=== PATIENT | female | born 1995 ===

== ENCOUNTER 2017-10-19 12:23 | Emergency (ER) | payer OTHER ==
[~2017-10-19] VITALS: Ht 154.9 cm; Wt 69.9 kg
[2017-10-19] MEDS ORDERED: SYNTHROID50 MCG (12:55)
== END 2017-10-19 18:51 | disposition home or self-care (01) ==
LOC: ER 12:23 → EDBD 12:43 → ER 12:43
DX: O20.0 Threatened abortion (principal); Z34.01 Encounter for supervision of normal first pregnancy, first trimester

== ENCOUNTER 2017-10-23 01:20 | Emergency (ER) | payer OTHER ==
[~2017-10-23] VITALS: Ht 157.5 cm; Wt 69.9 kg
[~2017-10-23 01:20] MED LIST: SYNTHROID50 MCG
[2017-10-23] MEDS ORDERED: OBSTETRIX EC C1 EACH (01:58)
== END 2017-10-23 12:45 | disposition home or self-care (01) ==
LOC: ER 01:20
DX: O20.0 Threatened abortion (principal); Z34.01 Encounter for supervision of normal first pregnancy, first trimester

== ENCOUNTER 2017-11-27 08:26 | Emergency (ER) | payer OTHER ==
[~2017-11-27] VITALS: Ht 154.9 cm; Wt 68.9 kg
[~2017-11-27 08:26] MED LIST changes: +OBSTETRIX EC C1 EACH
== END 2017-11-27 16:22 | disposition home or self-care (01) ==
LOC: ER 08:26
DX: O21.0 Mild hyperemesis gravidarum (principal); Z34.01 Encounter for supervision of normal first pregnancy, first trimester

== ENCOUNTER 2017-12-04 13:43 | Emergency (ER) | payer OTHER ==
[~2017-12-04] VITALS: Ht 154.9 cm; Wt 65.8 kg
== END 2017-12-04 19:41 | disposition home or self-care (01) ==
LOC: ER 13:43
DX: O21.0 Mild hyperemesis gravidarum (principal); O26.892 Other specified pregnancy related conditions, second trimester; K29.70 Gastritis, unspecified, without bleeding; Z34.82 Encounter for supervision of other normal pregnancy, second trimester

== ENCOUNTER 2018-04-15 10:05 | Outpatient (CLI) | payer OTHER | END 2018-04-15 10:42 | disposition home or self-care (01) | LOC: NST 10:05 | DX: Z34.03 Encounter for supervision of normal first pregnancy, third trimester (principal) ==

== ENCOUNTER 2018-04-23 12:08 | Inpatient (IN) | payer OTHER ==
[~2018-04-23] VITALS: Ht 154.9 cm; Wt 81.2 kg
[2018-04-23] MEDS ORDERED: PRENATAL TABLE1 EAC1 PO (15:39)
== END 2018-04-26 11:48 | disposition home or self-care (01) | DRG 833 ==
LOC: LDR 12:08 → OB/GYN 04-24 10:15
PROVIDERS: ADMIT Obstetrics & Gynecology
PROC: BY4FZZZ Ultrasonography of Third Trimester, Single Fetus (ICD-10-PCS; principal; 2018-04-23)
PROC: 4A1HXCZ Monitoring of Products of Conception, Cardiac Rate, External Approach (ICD-10-PCS; 2018-04-23)
DX: O47.03 False labor before 37 completed weeks of gestation, third trimester (principal); Z34.03 Encounter for supervision of normal first pregnancy, third trimester

== ENCOUNTER 2018-05-11 17:23 | Outpatient (CLI) | payer OTHER ==
[~2018-05-11 17:23] MED LIST changes: +PRENATAL TABLE1 EAC1 PO
== END 2018-05-11 21:32 | disposition home or self-care, planned readmission (81) ==
LOC: OBS/DEL 17:23 → LDR 17:24 → OBS/DEL 21:32
DX: O47.1 False labor at or after 37 completed weeks of gestation (principal); Z34.03 Encounter for supervision of normal first pregnancy, third trimester

== ENCOUNTER 2018-05-13 01:52 | Inpatient (IN) | payer OTHER ==
[~2018-05-13] VITALS: Ht 154.9 cm; Wt 84.4 kg
[2018-05-13] MEDS ORDERED: ATABEX EC CAPL1 EACH PO (03:26)
[2018-05-13] MEDS ORDERED: SYNTHROID50 MCG PO (03:28)
[2018-05-16] MEDS ORDERED: IBUPROFEN400 MG PO (10:18)
[2018-05-16] MEDS ORDERED: SENNA8.6 MG PO (10:18)
[2018-05-16] MEDS ORDERED: GAS RELIEF125 MG PO (10:18)
== END 2018-05-16 13:54 | DRG 788 ==
LOC: OBS/DEL 01:52 → OB/GYN 02:27 → LDR 02:27 → OB/GYN 09:45
PROVIDERS: ADMIT Obstetrics & Gynecology
PROC: 4A1HXCZ Monitoring of Products of Conception, Cardiac Rate, External Approach (ICD-10-PCS; 2018-05-13)
PROC: 10D00Z1 Extraction of Products of Conception, Low, Open Approach (ICD-10-PCS; principal; 2018-05-13 07:00)
DX: O76 Abnormality in fetal heart rate and rhythm complicating labor and delivery (principal); Z3A.39 39 weeks gestation of pregnancy; Z37.0 Single live birth